=== PATIENT | female | born 1955 | race Caucasian/White ===

== ENCOUNTER 2016-11-15 10:02 | Emergency (ER) | payer BC ==
[2016-11-15 10:10] VITALS: TEMP 97.6; BMI 20.5
[2016-11-15] MEDS ORDERED: OXYCODONE HCL 5 MG TABLET PO ONE (10:26)
[2016-11-15] MEDS ORDERED: IBUPROFEN 600 MG TAB PO ONE (10:26)
--- NOTE | 2016-11-15 10:27 | EDPRACDOC ---
- General Chief Complaint: Fall Stated Complaint: FALL (BACK PAIN) Time Seen by Provider: 11/15/16 10:19 Information Source: Patient - History of Present Illness Onset: 3 days HPI: PT SLIPPED ON SOME ACORNS 3 DAYS AGO. SHE C/O PAIN TO HER ENTIRE SPINE. SHE DENIES HITTING HER HEAD OF LOC. Pain Severity: Reports: Mild Injuries/Pain Location: Reports: neck, back Reason for Fall: Reports: slipped Loss of Consciousness: no loss of consciousness Associated Symptoms (Fall): Reports: denies symptoms Allergies/Adverse Reactions: Allergies No Known Allergies Allergy (Verified 06/08/15 00:44) Home Medications: Ambulatory Orders Ca/D3/Mag#11/Zinc/Paediatric Physiotherapist/Guillermo/Bor [Caltrate Plus Tablet] 1 tab PO DAILY 11/15/16 Fluoxetine HCl [Prozac] 40 mg PO DAILY 11/15/16 Hydrocodone/Acetaminophen [Lortab 5-325 mg Tablet] 1 each PO Q4H PRN #15 tablet 11/15/16 Ibuprofen [Motrin Ib] 200 - 400 mg PO Q4H PRN 11/15/16 Multivitamin [Multiple Vitamins] 1 tab PO DAILY 11/15/16 Nadolol [Corgard] 20 mg PO DAILY 11/15/16 Valsartan/Hydrochlorothiazide [Valsartan-Hctz 320-12.5 mg Tab] 1 tab PO DAILY ED Past Medical History - Patient Medical History Cardiac History: Reports: Hypertension GI/ History: Denies: Renal Disease (Per family member at bedside.) Psychological History: Reports: Substance Use Disorder. Denies: Depression Systemic History: Denies: Diabetes, Hypothyroidism Surgical History: Reports: No Significant History - Social Medical History Smoking Status: Never smoker Social History: Reports: Substance Use Disorder ETOH: None Substance Abuse: None Lives In: Home EDM Review of Systems - Review of Systems ROS Negative Except as Marked: Yes All systems reviewed and were negative except as marked Musculoskeletal: Back, Neck - Physical Exam Constitutional: Alert (Awake), No apparent distress Oriented to: Time, Person, Place Last recorded Vital Signs: Last Vital Signs Temp 97.6 F 11/15/16 10:07 Pulse 63 11/15/16 10:07 Resp 18 11/15/16 10:07 BP 144/91 11/15/16 10:07 Pulse Ox 99 11/15/16 10:07 Oxygen Pulse Oxygen Saturation 99 O2 Device Room Air Oxygen Flow Rate Fraction of Inspired Oxygen ( FIO2) - HEENT Head: Normal ( normocephalic) Eye Exam: Normal (PERRL, EOMI, Sclera white) Oropharynx: Normal (Pharynx:Moist without exudate,Gums-no swelling) ENT EAC: Normal TMJ: Normal Nose: No Symptoms Reported (septum midline) Neck: Normal (FROM, trachea at midline) - Respiratory/Cardiovascular Respiratory: Normal - CTA (BBS clear to auscultation without adventitious sounds ) Cardiovascular: Normal (RRR without murmur, gallop or rub) - GI Auscultation: Normal (NABS) Palpation: Normal (Soft,No rebound or guarding, non distended) Tenderness: Non tender Law's Sign: Negative - Musculoskeletal Back: Thoracic TTP, Lumbar TTP Extremities: Normal - Integumentary Skin: Normal, Warm, Dry Lymphatics: Normal (no adenopathy) - Neurologic Memory Impaired: Normal Motor Function: Normal (Normal tone, Pulses 2+ No cyanosis or edema, FROM) Cranial Nerve: Normal (CN II-X11 intact sensation, strength 5/5) Cerebellar: Normal Mood Description: Normal Thought: Coherent Perception: Normal - Diagnostic Imaging C-spine Image interpreted by: Radiologist 1. No definite acute acute fracture identified in the cervical spine, however, anterolisthesis at C3-C4 is new since 2004. This could be degenerative but ligamentous injury is not excluded. 2. Chronic lower cervical disc and endplate degeneration. L-Spine Image interpreted by: Radiologist Moderate to severe compression fracture T12 of indeterminate age. Correlate with localized pain. MRI may be helpful for further evaluation. Other Image interpreted by: Radiologist COCCYX: Negative. T-Spine Image interpreted by: Radiologist There is interval moderate compression deformity upper endplate of L1 vertebral body. Mild to moderate compression deformity T7 vertebral body. Minimal compression deformity upper endplate of T6 vertebral body. This are of indeterminate age. Clinical correlation is necessary. If recent fractures are suspected further correlation with MRI could be performed as clinically warranted. Decision Time to Discharge: 11:39 - Departure Yes I personally saw and evaluated the patient. Disposition: Home Final Diagnosis: Accidental fall, T12 compression fracture, Traumatic compression fracture of T7 thoracic vertebra, Traumatic compression fracture of T6 thoracic vertebra, Compression fracture of L1 lumbar vertebra Instructions: RICE: Routine Care for Injuries, Vertebral Compression Fracture ( ED) Education/Counseling Given To: Patient Education/Counseling Given Regarding: Diagnosis, Treatment, Follow Up Referrals: Yimi Estes MD [Primary Care Provider] - One Week Johny Ma MD [Staff Physician] - One Week Prescriptions: Hydrocodone/Acetaminophen [Lortab 5-325 mg Tablet] 1 each PO Q4H PRN #15 tablet PRN Reason: Pain
--- NOTE | 2016-11-15 11:29 | DIRPT ---
CLINICAL DATA: Fall, slipped on acorns 3 days ago, bilateral hip pain, low back pain EXAM: THORACIC SPINE 2 VIEWS COMPARISON: Lateral view cervical spine 06/15/2015. FINDINGS: Two views of thoracic spine submitted. There is interval moderate compression deformity upper endplate of L1 vertebral body. Mild to moderate compression deformity T7 vertebral body. Minimal compression deformity upper endplate of T6 vertebral body. This are of indeterminate age. Clinical correlation is necessary. If recent fractures are suspected further correlation with MRI could be performed as clinically warranted. IMPRESSION: There is interval moderate compression deformity upper endplate of L1 vertebral body. Mild to moderate compression deformity T7 vertebral body. Minimal compression deformity upper endplate of T6 vertebral body. This are of indeterminate age. Clinical correlation is necessary. If recent fractures are suspected further correlation with MRI could be performed as clinically warranted. Electronically Signed By: Long Greenwood M.D. On: 11/15/2016 11:27
--- NOTE | 2016-11-15 11:29 | DIRPT ---
CLINICAL DATA: Fall 3 days ago. Back pain EXAM: LUMBAR SPINE - COMPLETE 4+ VIEW COMPARISON: CT chest 06/10/2015. FINDINGS: Moderate to severe compression fracture T12. This fracture is of indeterminate age but was not present on the prior chest CT of 06/10/2015. Mild retropulsion of bone into the canal. Mild anterior slip L3-4 with disc and facet degeneration. No lumbar fracture or mass lesion. No pars defect. IMPRESSION: Moderate to severe compression fracture T12 of indeterminate age. Correlate with localized pain. MRI may be helpful for further evaluation. Electronically Signed By: Juan Barbosa M.D. On: 11/15/2016 11:26
--- NOTE | 2016-11-15 11:29 | DIRPT ---
CLINICAL DATA: Fall 3 days ago. EXAM: SACRUM AND COCCYX - 2+ VIEW COMPARISON: None. FINDINGS: There is no evidence of fracture or other focal bone lesions. IMPRESSION: Negative. Electronically Signed By: Juan Barbosa M.D. On: 11/15/2016 11:27
--- NOTE | 2016-11-15 11:33 | DIRPT ---
CLINICAL DATA: 61-year-old female who slipped and fell 3 days ago. Continued cervical neck pain. Initial encounter. EXAM: CERVICAL SPINE - COMPLETE 4+ VIEW COMPARISON: Head CT 06/10/[address] 06/10/2015 FINDINGS: No previous cervical spine radiographs. The cervical spine was visible most recently on the strip machine tender view of a head CT 11/30/2004. Since that time C3-C4 anterolisthesis measuring up to 3 mm is new. However, bilateral posterior element alignment appears maintained. Prevertebral soft tissue contours within normal limits. Chronic lower cervical disc and endplate degeneration from C4 to the C7 level. Cervicothoracic junction alignment is within normal limits. AP alignment within normal limit. Lung apices appear stable from 2014. C1-C2 alignment within normal limits. IMPRESSION: 1. No definite acute acute fracture identified in the cervical spine, however, anterolisthesis at C3-C4 is new since 2004. This could be degenerative but ligamentous injury is not excluded. 2. Chronic lower cervical disc and endplate degeneration. Electronically Signed By: Jennifer Jimenez M.D. On: 11/15/2016 11:30
[2016-11-15 12:10] VITALS: BP 168/81; PULSE 60
== END 2016-11-15 12:08 | disposition home or self-care (01) ==
LOC: ED 10:02
DX: S22.089A Unspecified fracture of T11-T12 vertebra, initial encounter for closed fracture (principal); S22.069A Unspecified fracture of T7-T8 vertebra, initial encounter for closed fracture; S22.059A Unspecified fracture of T5-T6 vertebra, initial encounter for closed fracture; S32.019A Unspecified fracture of first lumbar vertebra, initial encounter for closed fracture; W01.0XXA Fall on same level from slipping, tripping and stumbling without subsequent striking against object, initial encounter; I10 Essential (primary) hypertension; Z79.899 Other long term (current) drug therapy
CPT/HCPCS: 72050; 72070; 72110; 72220; 99284; J3490